=== PATIENT | female | born 1965 | race Caucasian/White ===

== ENCOUNTER 2019-07-10 13:16 | Emergency (ER) | payer OTHER ==
[~2019-07-10] VITALS: Ht 165.1 cm; Wt 50.0 kg
[2019-07-10 14:15] VITALS: BP 109/58
[2019-07-10] MEDS ORDERED: GUAI120L55 PO (14:43)
[2019-07-10] MEDS ORDERED: BENZ-16 PO (14:43)
== END 2019-07-10 14:59 | disposition home or self-care (01) ==
LOC: ER 13:17
DX: J06.9 Acute upper respiratory infection, unspecified (principal); Z79.899 Other long term (current) drug therapy; Z60.2 Problems related to living alone
CPT/HCPCS: 99283